=== PATIENT | female | born 1975 | race Caucasian/White ===

== ENCOUNTER 2019-07-24 06:18 | Emergency (ER) | payer OTHER ==
[~2019-07-24] VITALS: Ht 160 cm; Wt 64.0 kg
[~2019-07-24 06:18] MED LIST: BENA1TAB18 PO
[2019-07-24] MEDS ORDERED: ONDANSETRON HCL 4MG/2ML INJ IV STA (06:41)
[2019-07-24] MEDS ORDERED: SODIUM CHLORIDE 0.9% 1,000 ML IV ONE (06:41)
[2019-07-24] MEDS ORDERED: MORPHINE SULFATE 4 MG/ML CPJ (NOT FOR IM USE) IV STA (06:41)
[2019-07-24] MEDS ORDERED: IOHEXOL-300 100 ML BOTTLE ONE (09:17)
[2019-07-24 09:22] LABS: BASOPHILS % 0.3 % (0.0-2.0); CHLORIDE 109 mEq/L (98-107); EOSINOPHILS % 0.8 % (0.0-5.0); HEMATOCRIT. 38.9 % (36.0-48.0); HEMOGLOBIN. 13.3 g/dL (12.0-16.0); LYMPHOCYTES % 16.3 % (20.0-50.0); MEAN CORPUSCULAR HEMOGLOBIN 32.2 pg (28.0-32.0); MEAN PLATELET VOLUME 10.4 fl (7.4-10.4); MONOCYTES % 5.4 % (2.0-8.0); NEUTROPHILS % 77.2 % (40.0-76.0); PLATELET 280 x1000/uL (130-400); RED BLOOD CELL COUNT 4.14 mill/uL (4.2-5.4); RED CELL DISTRIBUTION WIDTH 14.1 % (11.6-14.6)
[2019-07-24 09:25] LABS: HCG SCREEN NEGATIVE
[2019-07-24 09:28] LABS: PARTIAL THROMBOPLASTIN TIME 27.5 sec (23.4-31.0); PROTHROMBIN TIME 10.1 sec (9.6-11.0)
[2019-07-24] MEDS ORDERED: FENTANYL CITRATE/PF 50MCG/ML 2ML VIAL IV ONE (12:00)
[2019-07-24] MEDS ORDERED: KETOROLAC 30MG/ML VIAL IV ONE (12:00)
[2019-07-24] MEDS ORDERED: ONDANSETRON HCL 4MG/2ML INJ IV ONE (12:00)
[2019-07-24 14:08] VITALS: BP 136/92
== END 2019-07-24 14:11 | disposition home or self-care (01) ==
LOC: ER 06:18
DX: S20.211A Contusion of right front wall of thorax, initial encounter (principal); R42 Dizziness and giddiness; M54.2 Cervicalgia; M79.605 Pain in left leg; M79.672 Pain in left foot; M25.562 Pain in left knee; M25.561 Pain in right knee; M79.641 Pain in right hand; V49.49XA Driver injured in collision with other motor vehicles in traffic accident, initial encounter; Y93.89 Activity, other specified; Y92.410 Unspecified street and highway as the place of occurrence of the external cause; I10 Essential (primary) hypertension
CPT/HCPCS: 36415; 70450; 71045; 71260; 72125; 73130; 73562; 73590; 73610; 73630; 74177; 80053; 81025; 83880; 84484; 84703; 85025; 85610; 85730; 93005; 96374; 96375; 96376; 99284; J1885; J2270; J2405; J3010; J7030; Q9967